=== PATIENT | male | born 1940 | race Caucasian/White ===

== ENCOUNTER 2018-08-06 09:23 | Emergency (ER) | payer MEDICARE, MEDICAID ==
[~2018-08-06] VITALS: Ht 177.8 cm; Wt 75.0 kg
[2018-08-06 10:45] LABS: BASOPHILS % (AUTO) 0.2 % (0-1); EOSINOPHILS % (AUTO) 0 % (0-6); HEMATOCRIT 36.3 % (42.0-52.0); HEMOGLOBIN 11.6 g/dl (14.0-17.9); LYMPHOCYTES # (AUTO) 0.6 X10'3 (1.1-4.8); LYMPHOCYTES % (AUTO) 5.6 % (21-51); MEAN CORPUSCULAR HEMOGLOBIN 29.4 PG (27.0-31.0); MEAN CORPUSCULAR VOLUME 91.9 FL (78-98); MEAN PLATELET VOLUME 10.4 FL (7.4-10.4); MONOCYTES # (AUTO) 0.5 X10'3 (0-0.9); MONOCYTES % (AUTO) 4.8 % (2-12); NEUTROPHILS % (AUTO) 89.4 % (42-75); PLATELET COUNT 199 X10'3 (140-440); RED BLOOD COUNT 3.94 X10'6 (4.70-6.10); RED CELL DISTRIBUTION WIDTH 14.5 % (11.5-14.5); WHITE BLOOD COUNT 11.2 X10'3 (4.5-11.0)
[2018-08-06 10:53] LABS: ALANINE AMINOTRANSFERASE 33 U/L (12-78); ALBUMIN 3.3 G/DL (3.4-5.0); ALBUMIN/GLOBULIN RATIO 0.8 (1.1-1.5); ALKALINE PHOSPHATASE 94 IU/L (46-116); ANION GAP 16 (8-16); ASPARTATE AMINO TRANSFERASE 31 U/L (10-37); BILIRUBIN,TOTAL 0.2 MG/DL (0.1-1.0); BLOOD UREA NITROGEN 34 MG/DL (7-18); BUN/CREATININE RATIO 23.1 (5.4-32.0); CALCIUM 9.2 MG/DL (8.5-10.1); CHLORIDE 105 MMOL/L (99-107); CREATININE 1.47 MG/DL (0.60-1.10); GLUCOSE 93 MG/DL (70-104); PARTIAL THROMBOPLASTIN TIME 24 SECONDS (22-32); POTASSIUM 4.5 MMOL/L (3.5-5.1); PROTHROMBIN TIME 10.5 SECONDS (9.0-12.0); SODIUM 143 MMOL/L (135-145); TOTAL CARBON DIOXIDE 21.9 MMOL/L (24-32); TOTAL PROTEIN 7.3 G/DL (6.4-8.2); eGFR 46 ML/MIN
--- NOTE | 2018-08-06 12:01 | NUR ---
Spoke with Dr. Ballard, states that patient does not meet criteria for admission, however will ot take patient home, called and spoke with , explained that patient was not being admitted, stated that she wants him placced, explained that she needed to work with her primary care doctor, hung up, call to [facility] Vaishnavi, states she will also follow up with patient, called ER and spoke with Barbara for follow up
[2018-08-06] MEDS ORDERED: METF-950 (15:25)
[2018-08-06] MEDS ORDERED: AMLO10TA13 (15:25)
[2018-08-06] MEDS ORDERED: ESCI10TA54 (15:25)
[2018-08-06] MEDS ORDERED: METO50TA16 (15:25)
[2018-08-06] MEDS ORDERED: TAMS0.4C32 PO (15:25)
[2018-08-06] MEDS ORDERED: ATOR-2 PO (15:25)
[2018-08-06] MEDS ORDERED: DONE10TA44 (15:25)
[2018-08-06] MEDS ORDERED: LISI40TA4 PO (15:25)
[2018-08-06] MEDS ORDERED: DONE10TA37 PO (15:38)
[2018-08-06] MEDS ORDERED: ESCI5TAB12 PO (15:38)
[2018-08-06] MEDS ORDERED: AMLO10TA PO (15:38)
[2018-08-06] MEDS ORDERED: METF-436 PO (15:38)
[2018-08-06] MEDS ORDERED: METO50TA17 PO (15:38)
--- NOTE | 2018-08-06 18:16 | NUR ---
Charlene left with patients daughter requesting that she call back.
--- NOTE | 2018-08-06 20:38 | NUR ---
CALLED DORIE AND REQUESTED A WELFARE CHECK DUE TO INABILITY TO CONTACT OR FAMILY FOR THE PATIENT ALTHOUGH SHE ANSWERED EARLIER AND HUNG UP ON US.
--- NOTE | 2018-08-06 22:07 | NUR ---
APS REPORT SENT TO [facility].
--- NOTE | 2018-08-06 22:24 | NUR ---
PT APPEARS TO BE SLEEPING IN THE ROOM AT THIS TIME. RESP EVEN UNLABORED.
--- NOTE | 2018-08-06 22:51 | NUR ---
PT ATE ENTIRE MEAL TRAY.
--- NOTE | 2018-08-07 01:42 | NUR ---
PT CONTINUES TO SLEEPING, RESP EVEN, UNLABORED.
--- NOTE | 2018-08-07 03:29 | NUR ---
PT LAYING IN THE ROOM, APPEARS TO BE SLEEPING.
--- NOTE | 2018-08-07 05:24 | NUR ---
Patient awake and resting comfortably. Requesting apple sauce which is provided. Patient updated on POC.
--- NOTE | 2018-08-07 08:00 | NUR ---
son came into hospital, spoke with him about pt being ready to go home, son said he was going to go to his mom's house and speak with her about the patient coming home
--- NOTE | 2018-08-07 08:16 | NUR ---
CASE MANAGEMENT PAGED.
--- NOTE | 2018-08-07 10:48 | NUR ---
MED REQU PRINTED WAITING FOR NEW ORDERS. PT. PLACED ON HOSPITAL BED TO KEEP SKIN INTACT.
[2018-08-07] MEDS ORDERED: ESCI10TA54 PO (10:53)
--- NOTE | 2018-08-07 14:31 | NUR ---
PAGED SOCIAL SERVICE TO GET AN UPDATE ON DISCHARGE FOR THIS PT.
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
--- NOTE | 2018-08-07 17:25 | NUR ---
DARRIAN CALLED FROM [employer] AND STATED SHE HAD GOTTEN A HOLD OF THE PT'S DAUGHTER. DAUGHTER SAID THAT HER BROTHER THE SON OF THE PT. 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 SO BY 1800 WE SHOULD SEE SON (AYUSH) IF NOT PLEASE CALL HIM AT [phone]
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
[2018-08-07] MEDS ORDERED: donepezil 5mg tablet PO SCH (21:00)
[2018-08-07] MEDS: metFORMIN 500mg tablet PO SCH (21:37)
[2018-08-07] MEDS: metoprolol tartrate 50mg tablet PO SCH (21:37)
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
[2018-08-08] MEDS ORDERED: tamsulosin 0.4mg capsule PO SCH (08:00)
[2018-08-08] MEDS ORDERED: lisinopril 20mg tablet PO SCH (08:00)
[2018-08-08] MEDS ORDERED: citalopram 20mg tablet PO SCH (08:00)
[2018-08-08] MEDS: metoprolol tartrate 50mg tablet PO SCH (08:00)
[2018-08-08] MEDS ORDERED: amLODIPine 5mg tablet PO SCH (08:00)
[2018-08-08] MEDS ORDERED: atorvastatin 20mg tablet PO SCH (08:00)
--- NOTE | 2018-08-08 08:08 | NUR ---
social worker delinquency prevention called
[2018-08-08 08:47] VITALS: BP 197/85
--- NOTE | 2018-08-08 09:43 | NUR ---
spoke to callie in long term care social worker she will call pt son
--- NOTE | 2018-08-08 09:52 | NUR ---
callie from social security assessor did not reach family, left message for them o return her call. callie states she will look into his medical to see if she can place him
[2018-08-08] MEDS: metFORMIN 500mg tablet PO SCH (10:27)
--- NOTE | 2018-08-08 12:37 | NUR ---
eliceo called spoke to , she was very aggressive and stated she would be at the hospital at 1330 on [address] and we are to have him at the front door. She stated we are to have him at the door at exactly 1330.
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
== END 2018-08-08 13:38 | disposition home or self-care (01) ==
LOC: ER 09:24
DX: S20.219A Contusion of unspecified front wall of thorax, initial encounter (principal); E11.649 Type 2 diabetes mellitus with hypoglycemia without coma; R44.3 Hallucinations, unspecified; F03.90 Unspecified dementia, unspecified severity, without behavioral disturbance, psychotic disturbance, mood disturbance, and anxiety; W19.XXXA Unspecified fall, initial encounter; Y93.89 Activity, other specified; Y92.89 Other specified places as the place of occurrence of the external cause; Y99.8 Other external cause status
CPT/HCPCS: 36415; 71045; 80053; 82948; 84484; 85025; 85610; 85730; 93005; 99284